=== PATIENT | male | born 1965 | race Caucasian/White ===

== ENCOUNTER → 2022-06-20 | Outpatient (CLI) | payer OTHER ==
[~2022-06-20] MED LIST: AMOCLA875 PO; CEPH500 PO; IBUP800 PO; LOVA20 PO; RANI150 PO; RXHYDACE PO; SULTRIDS PO
[2022-06-22 11:00] LABS: Stool Occult Bld Immuno 1 Negative (NEGATIVE)
== END | disposition home or self-care (01) ==
LOC: LAB SHORT 12:00 → LAB 12:00 → LAB SHORT 06-21 12:00
PROVIDERS: Physician Assistant
DX: Z12.11 Encounter for screening for malignant neoplasm of colon (principal)
CPT/HCPCS: G0328